=== PATIENT | male | born 1990 | race Hispanic/Latino ===

== ENCOUNTER 2018-01-04 06:35 | Day surgery (SDC) | payer OTHER ==
[2017-12-27 11:43] VITALS: BMI 28.8
[2018-01-04] MEDS ORDERED: Propofol 10 mg/ml Inj (20 ML) ONE ×3 (07:35→11:47)
[2018-01-04] MEDS ORDERED: Midazolam 2 MG/2 ML VIAL ONE (07:35)
[2018-01-04] MEDS ORDERED: Rocuronium 10 mg/ml (10 ml) ONE (07:42)
[2018-01-04] MEDS ORDERED: Bupivacaine HCl 0.5% PF (10 ml) Inj ONE ×2 (07:53→15:02)
[2018-01-04] MEDS ORDERED: ceFAZolin IV 2 gm in Dextrose 2 GM/50 ML BAG IVPB ONE (08:10)
[2018-01-04] MEDS ORDERED: Lidocaine/Epinephrine 1% 1:100000 10 ML IJ ONE (09:42)
[2018-01-04] MEDS ORDERED: Lactated Ringer's 1,000 ML IV SCH (13:15)
[2018-01-04] MEDS: HYDROmorphone 0.5 mg/0.5 ml ISec IVP PRN ×3 (13:19→14:50)
--- NOTE | 2018-01-04 13:35 | RAD ---
Chest x-ray single frontal view History: Clavicle fracture. Comparison: None available. Findings: Status post open reduction internal fixation of a right clavicular fracture. Mild venous congestion of the lung love. Mild bibasilar atelectasis. Heart size within normal limits. Impression Postsurgical changes.
[2018-01-04 15:04] VITALS: TEMP 98.1
[2018-01-04 15:13] VITALS: O2SAT 95
[2018-01-04 16:29] VITALS: BP 121/56; PULSE 114; RESP 16
--- NOTE | 2018-01-04 16:46 | PCM.ANESB1 ---
Interscalene Block - Brachial Plexus Date of Procedure: 01/04/18 Anesthesiologist: Sterling Post-Procedure Diagnosis: s/p right clavicle ORIF Procedure Performed: Interscalene Block of Brachial Plexus Right - Procedure Interscalene Block of Brachial Plexus: R brachial plexus block performed, interscalene approach, in PACU. Under sterile conditions and ultrasound guidance, a total of 20 cc 0.5% bupivacaine was injected around the brachial plexus using a 2" stimuplex needle. Injection was performed in 5 cc increments with negative aspiration throughout. Patient tolerated procedure well.
--- NOTE | 2018-01-06 15:31 | RAD ---
PROCEDURE: Intraoperative Fluoroscopy. HISTORY: Open reduction internal fixation of the right clavicular fracture. FINDINGS: Fluoroscopic assistance was provided for open reduction internal fixation of a right clavicular fracture.. Please refer to the operative report from ENDER Melendez DR, MD.
--- NOTE | 2018-01-12 02:25 | PCM.SURG1 ---
Surgeon's Initial Post Op Note - Surgeon's Notes Surgeon: Julian Peñaloza Roller Pneumatic: Vanesa Eddy PA-C Type of Anesthesia: General Endo, Block Regional Pre-Operative Diagnosis: Right shoulder displaced/comminuted/segmental mid- shaft clavicle fracture Operative Findings: Right shoulder displaced/comminuted/segmental mid-shaft clavicle fracture. with bone defects Post-Operative Diagnosis: Right shoulder displaced/comminuted/segmental mid- shaft clavicle fracture. with bone defects Operation Performed: Right shoulder mid-shaft clavicle fracture ORIF w/ bone graft Specimen/Specimens Removed: specimen= none. comlications= none. Implants= Synthes 9 hole pre-contoured anterior clavicle plate and screws. Synthes DBX putty / bone graft 0.5cc Estimated Blood Loss: EBL {In ML}: 100 Blood Products Given: N/A Drains Used: No Drains Post-Op Condition: Good Date of Surgery/Procedure: 01/04/18 Time of Surgery/Procedure: 12:00
--- NOTE | 2018-01-16 12:23 | OP ---
PROCEDURE DATE: 01/04/2018. PREOPERATIVE DIAGNOSIS: Right shoulder displaced/comminuted/segmental midshaft clavicle fracture. POSTOPERATIVE DIAGNOSIS: Right shoulder displaced/comminuted/segmental midshaft clavicle fracture with bone defects. SURGERY: Right shoulder midshaft clavicle fracture, open reduction and internal fixation with bone graft. SURGEON: Julian Peñaloza MD. TRANSIT WORKER: Vanesa Gastelum PA-C. JUSTIFICATION FOR TRANSIT WORKER: Vanesa Gastelum is a certified physician anesthesiology physician assistant whose skilled surgical service was an absolute necessity for successful completion of the procedure, as he provided skilled surgical assistance with positioning of the patient, positioning of extremity, management of surgical field, retraction of neurovascular structures, facilitating open anatomical reduction of the fracture, complex pattern, placement of temporary hardware, placement of anterior clavicle plate and screws, placement of bone graft, wound closure, and placement of shoulder immobilizer sling. Vanesa Gastelum was present for the entire case, was an absolute necessity for successful completion of the procedure. TYPE OF ANESTHESIA: General endotracheal anesthesia with postop regional nerve block placed by anesthesia staff in PACU. SPECIMEN: None. COMPLICATIONS: None. ESTIMATED BLOOD LOSS: 100 mL. DRAINS: None. DISPOSITION: The patient was extubated and transferred to PACU in stable condition and tolerated the procedure well. IMPLANTS: Synthes precontoured anterior clavicle plate and screws, 9 hole clavicle plate, [employer]ynthe[employer] DBX putty/bone graft, 0.5 mL in total. INDICATION FOR SURGERY: The patient is a 27-year-old male who is right hand dominant, who presents to the office with a new trauma for the first time on December 24, 2017 with right shoulder pain and deformity. He stated that on December 22, 2017, he was snowboarding in [place] when he was going down a hill and fell and landed on his right shoulder. He said he flipped after hitting an end and landed on his right shoulder. He had immediate 10/10 pain and deformity localized to the right shoulder clavicle. He was seen at the emergency room local to the skiing slope in [place], where he was diagnosed with a mid shaft displaced clavicle fracture and told that he may need surgery and was instructed to followup with an orthopedic surgeon as an outpatient. The patient was already an established patient in system and presented with a new problem. X-rays taken in the office on initial presentation on December 24, 2017, revealed a displaced segmental comminuted mid shaft clavicle fracture with atleast 4 displaced individual segmental pieces. He had just over 2 cm of shortening and displacement with significant deformity. The patient is right hand dominant and is active in recreational sports. We discussed treatment options which included conservative treatment with sling or clavicle brace versus open reduction and internal fixation. We discussed the risks, benefits, and alternatives to open reduction internal fixation versus conservative treatment. The patient understood that he may have some residual weakness and that there would be significant callus deformity. The patient did not want to risk any weakness with his dominant arm and wished to proceed with surgical intervention. He was therefore indicative for clavicle fracture, open reduction internal fixation with the possibility of a need for bone graft due to the degree of comminution and possibility of bony defect. The risk, benefits, and alternatives of the procedure were discussed in length with the patient with the risk including but not limited to infection, neurovascular damage, iatrogenic injury including pneumothorax, malunion, nonunion, failure of hardware, irritated hardware, and need for removal for hardware and further surgery in the future, inability to return to preinjury level of activity and sports, inability to return to preinjury occupation, anesthesia reactions including , development of blood clots including DVT and PE, development of chronic pain and disability, cardiopulmonary collapse. After answering all of his questions, he stated that he understood the risks and wished to proceed with surgery. We reviewed many surgical animation videos and diagnosis videos as well as his x-rays and examples of open reduction internal fixation pictures and x-rays and he stated that he had a good understanding for the procedure to be done as well as his diagnosis. He was referred to his primary care physician for preadmission testing and medical evaluation and the procedure was scheduled at [facility]. PROCEDURE IN DETAIL: The patient was identified in the preoperative holding area and the right shoulder was marked for surgery. Once again, as described above, the risks, benefits and alternatives to the procedure were discussed at length with the patient and informed consent was obtained. After a brief discussion with the anesthesia staff, perioperative IV antibiotics in the form of 2 gm Ancef were administered and patient was taken to the operating room and placed in a well-padded operating room table with all bony prominences and superficial neurovascular structures well-padded. The beach chair position was in the supine position. An initial time-out was done with the surgeon, anesthesia staff, OR staff, all in agreement with the patient, procedure being done and the extremity being operated on. General anesthesia was administered without any difficulty or complications and examination under anesthesia was then carried out. Right shoulder with full range of motion compared to contralateral shoulder with no evidence of instability, skin was intact, no warmth, no swelling, no erythema. Continuation of procedure, the patient was then brought into the upright position while anesthesia staff maintained monitoring of his hemodynamic status to determine that he was stable in the upright position in the beach chair position. He was placed at approximately a 75 degree angle in the upright position with the beach chair positioner and anesthesia staff confirmed that he was hemodynamically stable and safe in the upright position. Right shoulder and upper extremity were prepped and draped in standard sterile fashion. A final time-out was done with the surgeon, anesthesia staff, OR staff, all in agreement with the patient, procedure being done and extremity being operated on. A 7 cm incision was made parallel to the long axis of the clavicle, slightly anterior and distal to allow for soft tissue coverage over the hardware, not directly under the incision. Incision was made to skin and subcutaneous tissue down to the level of the clavipectoral fascia. We then elevated the soft tissue anteriorly until the clavipectoral fascia was traced into its insertion on the inferior aspect of the clavicle. The clavipectoral fascia was then released from the inferior aspect of the clavicle as well as the pectoralis major insertion at the inferior aspect of the clavicle. The trapezius insertion at the superior aspect of the clavicle was also released as well as the platysma fibrous that was dissected to go more deep to reach the clavicle. The distal aspect of the clavicle was identified and the fracture was carefully dissected and soft tissue was removed. There was significant incarcerated muscle and soft tissue within the fracture that would have significantly hindered successful healing with conservative management as well. As stated before, there were 4 segmental main pieces to the fracture. The distal aspect had 2 pieces that spilt the distal clavicle in an oblique fashion sagittally. These 2 fracture fragments were identified and released from surroundings soft tissue. He already was developing fibrous tissue at the fracture edges as well. The segmental posterior fragment was dissected from the surrounding soft tissue and identified and protected for future incorporation into the construct. There was a small segmental/butterfly fragment that was also found in the posterior tissue and then was the medial fragments. We started with reducing the distal 2 fragments together with 2 lag screws. The reduction clamps were used to hold an anatomic reduction of the 2 lateral fragments. The oblique fracture was anatomically reduced and two 2.7 mm screws were used as lag screws drilled with AO lag technique. Once the 2 screws were in good position and counter sunk, that provide the stability and anatomic reduction to the 2 lateral fragments attention was then turned towards the more medial fragments. With the use of reduction clamps, the medial fragments were held together, but there was no good quality bone to hold a lag screw and therefore a decision was made to bridge plate while holding the anatomic reduction. A 9 hole pre-countered anterior clavicle plate from [employer] was then used and held provisionally with K-wire fixation. Multiple fracture reduction clamps were used with the help of my anesthesiology physician assistant to maintain the anatomic reduction while holding the plate in position. There was significant custom bending required for the pre-countered plate to fit the patient's anatomy in the reduced clavicle fracture position. Once the countered plate was established, provisional lateral and medial screws were held in position. Once this was done to satisfaction, we were able to place 4 screws medial to the fracture and 4 screws lateral to the fracture with good bicortical fixation. One of the medial screws and one of the lateral screws also behaved as a lag screw going perpendicular to the oblique fracture plain. All in all the 4 main fragments were incorporated into the construct with screws with atleast one screw holding each one of the segmental pieces. There was a fifth small segmental piece that was too small to have a screw hold it and therefore a #2 fibre wire suture was used and used a tension band holding the small segmental piece as well as the larger posterior segmental piece in an anatomic reduction. We were able to reposition one at the medial screws to lag and provide stable fixation to the larger posterior segmental piece as well. Once the anatomic reduction was confirmed with biplanar fluoroscopic imaging and we were happy with our construct and all the hardware was in position. The screw lengths were checked and was found to be of adequate length. There was still a bony defect superior posteriorly and 0.5 mL of DBX putty from [employer] was then used to fill the defect and bone graft, the defect left at the fracture in the constructs. Once this was done to satisfaction, the wound was copiously irrigated and we started with closure and reapproximation of the pectoralis major clavicle insertion and the trapezius insertion to each other and to the clavicle to provide stability. Once this was done to satisfaction with #2 fibre wire suture, attention was then turned towards reapproximating clavipectoral fascia with #1 Vicryl suture followed by 2.0 Vicryl suture for subcutaneous tissue followed by 3.0 Monocryl suture for skin. I was very pleased with the soft tissue coverage over the plate, as the incision was more distal and anterior to the plate with no direct communication. Sterile dressings were applied and then the right upper extremity was placed in the shoulder immobilizer sling provided by my office. the patient was then extubated and transferred to PACU in stable condition and tolerated the procedure well. DISPOSITION: The patient was instructed to keep the shoulder immobilizer sling on at all time and keep the dressing clean, dry, and intact until he follows up in the office within one week and he already has his postoperative appointment setup. He was given a prescription for Percocet for pain control. He will contact me directly with any questions or concerns. Julian Peñaloza MD
== END 2018-01-04 16:15 | disposition home or self-care (01) ==
LOC: C.SDS 06:35
PROVIDERS: ATTEND Student in an Organized Health Care Education/Training Program
DX: S42.021A Displaced fracture of shaft of right clavicle, initial encounter for closed fracture (principal)
CPT/HCPCS: 23485; 23515; 71045; C1713; J0690; J1170; J2001; J2250; J2704; J3010